=== PATIENT | female | born 1955 | race American Indian/Alaskan Native ===

== ENCOUNTER 2018-01-12 07:45 | Day surgery (SDC) | payer MEDICARE ==
[~2018-01-12 07:45] MED LIST: HEPARIN 10,000 UNITS/10 ML ONE; MARCAINE 0.5% 30 ML INFILTRATI ONE; NACL 0.9% 1000 ML 1,000 ML IV SCH; NACL 0.9% 500 ML 500 ML ONE; VANCOMYCIN/NS 1 GM/250 ML 1 GM/250 ML BAG IV NR; VERSED IV NR
[2018-01-12 09:35] LABS: Hematocrit 36.8 % (30.3-42.9); Hemoglobin 11.8 gm/dl (10.1-14.3); Mean Corpuscular HGB Conc 32 % (30-34); Mean Corpuscular Hemoglobin 29 pg (28-32); Mean Corpuscular Volume 91 fl (79-97); Platelet Count 195 K/mm3 (140-440); Red Blood Count 4.03 M/mm3 (3.65-5.03); Red Cell Distribution Width 13.4 % (13.2-15.2)
--- NOTE | 2018-01-12 09:47 | Anesthesia Day of Surgery ---
Anesthesia Day of Surgery - Day of Surgery Patient Examined: Yes Patient H&P Reviewed: Yes Patient is NPO: Yes Beta Blockers: Yes Cardiac Clearance: Yes Pulmonary Clearance: No
--- NOTE | 2018-01-12 09:49 | Anesthesia Consultation ---
Anesthesia Consult and Med Hx - Airway Anesthetic Teeth Evaluation: Edentulous ROM Head & Neck: Adequate Mental/Hyoid Distance: Adequate Mallampati Class: Class II Intubation Access Assessment: Probably Good - Pulmonary Exam CTA: Yes - Cardiac Exam Cardiac Exam: RRR - Pre-Operative Health Status ASA Pre-Surgery Classification: ASA4 Proposed Anesthetic Plan: General - Pulmonary Hx Smoking: Yes (one pack a day since age 13) COPD: Yes - Cardiovascular System Hx Hypertension: Yes - Central Nervous System Hx Psychiatric Problems: Yes - Endocrine Hx End Stage Renal Disease: Yes - Hematic Hx Anemia: Yes - Other Systems Hx Substance Use: Yes (Past cocaine user) Hx Cancer: Yes - Additional Comments Anesthesia Medical History Comments: ASA4: ESRD, HTN, ANEMIA, COPD, SMOKER
[2018-01-12 10:37] LABS: Calcium 8.5 mg/dL (8.4-10.2)
[2018-01-12 10:40] LABS: RBC Morphology Normal; Total Cells Counted 100
[2018-01-12 10:41] LABS: Platelet Estimate Consistent w Auto
[2018-01-12] MEDS ORDERED: DIPRIVAN 10 MG/ML IV ONE (11:35)
[2018-01-12] MEDS ORDERED: SUBLIMAZE ONE (11:35)
[2018-01-12] MEDS ORDERED: XYLOCAINE MPF 2% ONE (11:39)
[2018-01-12] MEDS ORDERED: ePHEDrine 50 MG/5 ML-0.9% NACL IV ONE (12:00)
[2018-01-12] MEDS ORDERED: ROBINUL ONE (12:09)
[2018-01-12] MEDS ORDERED: NEO SYNEPHRINE/NS Syringe(OR USE) IV ONE ×2 (12:16→14:00)
[2018-01-12] MEDS ORDERED: HEPARIN 10,000 UNITS/10 ML 2,000 UNIT in NACL 0.9% 500 ML 500 ML IR ONE (12:24)
[2018-01-12] MEDS ORDERED: MARCAINE 0.5% INFILTRATI ONE (13:32)
[2018-01-12] MEDS ORDERED: NACL 0.9% IR ONE (13:33)
[2018-01-12] MEDS ORDERED: ZOFRAN ONE (13:42)
--- NOTE | 2018-01-12 14:09 | Short Stay Summary ---
Short Stay Documentation Date of service: 01/12/18 Narrative H&P: See H&P - History H&P: obtained from office - Allergies and Medications Current Medications: Allergies Penicillins Allergy (Verified 01/08/18 17:15) Rash, hives Home Medications Medication Instructions Recorded Confirmed Last Taken Type Albuterol Sulfate [Ventolin Hfa] 2 puff IH PRN PRN 01/12/18 01/12/18 01/11/18 History Aspirin [Aspirin EC] 81 mg PO DAILY 01/12/18 01/12/18 01/12/18 07:00 History Cholecalciferol (Vitamin D3) 1,000 unit PO DAILY 01/12/18 01/12/18 01/11/18 History [Vitamin D3] Citalopram [celeXA] 20 mg PO QDAY 01/12/18 01/12/18 01/11/18 History Ferrous Sulfate [Iron] 325 mg PO BID 01/12/18 01/12/18 01/11/18 History Isosorb Dinit/Hydralazine [Bidil 1 each PO TID 01/12/18 01/12/18 01/11/18 History 20/37.5MG] Lactulose [Cephulac] 20 gm PO QDAY 01/12/18 01/12/18 01/11/18 History Sevelamer Carbonate [Renvela] 800 mg PO TID 01/12/18 01/12/18 01/11/18 History Sodium Polystyrene [Kionex] 30 gm PO ONCE 01/12/18 01/12/18 Unknown History Vit B Comp No.3/Folic/C/Biotin 1 each PO DAILY 01/12/18 01/12/18 01/11/18 History [Annie-Major Rx Tablet] risperiDONE [Risperdal] 4 mg PO DAILY 01/12/18 01/12/18 Unknown History Active Medications Sodium Chloride (Nacl 0.9% 1000 Ml) 1,000 mls @ 42 mls/hr IV DIRECT MARIA GUADALUPE Vancomycin HCl (Vancomycin/Ns 1 Gm/250 Ml) 1 gm in 250 mls @ 166.667 mls/hr IV PREOP NR; Protocol Stop: 01/12/18 23:59 Last Admin: 01/12/18 10:49 Dose: 166.667 mls/hr Sodium Chloride (Nacl 0.9% 1000 Ml) 1,000 mls @ 42 mls/hr IV DIRECT MARIA GUADALUPE Last Admin: 01/12/18 09:30 Dose: 42 mls/hr Midazolam HCl (Versed) 2 mg IV PREOP NR Stop: 01/12/18 23:59 - Brief post op/procedure progress note Date of procedure: 01/12/18 Pre-op diagnosis: End-Stage Renal Disease Post-op diagnosis: same Procedure: 1. Creation of Left Brachiocephalic Arteriovenous Fistula 2. Angioplasty of left cephalic vein with 4 x 200 balloon Anesthesia: GETA Surgeon: JEAN MUSTAFA Estimated blood loss: 50-100ml Pathology: none Condition: stable - Disposition Condition at discharge: Good Disposition: DC-01 TO HOME OR SELFCARE Short Stay Discharge Plan Activity: other (no heavy lifting with left arm) Wound: open to air, keep clean and dry, other (okay to wash the wound with soap and water but do not soak in water) Follow up with: JEAN MUSTAFA MD [Staff Physician] - 14 Days Prescriptions: HYDROcodone/APAP 7.5-325 [[place] 7.5/325] 1 each PO Q6HR PRN #40 tablet PRN Reason: Pain
--- NOTE | 2018-01-12 14:29 | Operative Report ---
Operative Report Operative Report: Date of procedure: 01/12/2018 Pre-operative diagnosis: End-Stage Renal Disease Post-operative diagnosis: End-Stage Renal Disease Procedure(s): 1. Creation of Left Brachial Artery to Cephalic Vein Arteriovenous Fistula 2. Angioplasty of Left Cephalic Vein with 4 x 200 Balloon Surgeon: Dwayne Shipley MD Miniature Set Builder: None Anesthesia: Gen. Endotracheal Anesthesia EBL: Minimal Counts: Correct Complications: None Condition: Stable Findings: Stenosis in the cephalic vein just after the takeoff of the anastomosis resulting in pulsatile flow of the fistula. After angioplasty with a 4 x 200 balloon there was a palpable thrill in the fistula. Specimen: None Indications: The patient is a 62-year-old female with history of end-stage renal disease on hemodialysis through a right internal to the permacath. She is in need of long- term dialysis access and was found to be a suitable candidate for creation of AV fistula. She was given the risks, benefits, and alternative procedures and consented to the procedure. Description of Procedure: The patient was brought to the operating room and laid in supine position after general endotracheal anesthesia was administered the patient was prepped and draped in normal sterile fashion. After anesthetizing the skin a transverse incision was created just below the antecubital crease. Dissection was carried down to the the cephalic vein using sharp dissection. The vein was dissected out both proximally and distally and suture ligated and divided distally. I then dissected out the brachial artery through this incision circumferentially both proximal and distal and controlled the artery with vessel loops. I then placed the vessel loops on tension controlling the flow through the artery and created an arteriotomy using an 11 blade and Red scissors. I created an end to side anastomosis between the cephalic vein and brachial artery using a combination of 6-0 Prolenes and Anastaclips . After completing the anastomosis I removed all clamps allow flow into the fistula which had a pulsatile character. I reclamped the fistula made a small rosibel in the lundberg of the fistula and attempted to pass a 3 Michelle however this only passed to approximately 5 cm. This indicated that there was either a stenosis or occlusion of the cephalic vein. I removed the Michelle and placed a micropuncture sheath into the fistula and was able to pass the 0.018 wire through the area of stenosis. I have asked to see through the area and then removed the inner cannula and wire and then advanced a 0.035 Bentson wire through the sheath and into the distal portion of the vein. The patient's arm was then and I could palpate the wire throughout the course of the vein. I advanced a 4 x 200 balloon into the vein and performed balloon angioplasty of the vein, by palpation. After angioplasty are multiple and wire and then used a 6-0 Prolene to close my venotomy. I then released the clamps allow flow into the fistula which had an excellent thrill. I achieved hemostasis with a combination of direct pressure and electrocautery. Once hemostasis was achieved I anesthetized the wound with 0.5% Marcaine. I then closed the wound in 2 layers and 3-0 Vicryl in a running fashion to close the deep dermal layer and 4-0 Monocryl in a running fashion in the subcuticular layer. I dressed the wound with Dermabond. The patient tolerated the procedure well, all sponge needle and instrument counts were correct. The patient was taken to recovery in stable condition.
[2018-01-12 20:49] VITALS: BP 112/77
== END 2018-01-12 16:25 | disposition home or self-care (01) ==
LOC: OR 07:45
PROVIDERS: ATTEND Surgery Vascular Surgery
DX: I12.0 Hypertensive chronic kidney disease with stage 5 chronic kidney disease or end stage renal disease (principal); N18.6 End stage renal disease; J44.9 Chronic obstructive pulmonary disease, unspecified; F17.210 Nicotine dependence, cigarettes, uncomplicated; Z88.0 Allergy status to penicillin; Z79.82 Long term (current) use of aspirin; Z79.899 Other long term (current) drug therapy
CPT/HCPCS: 36415; 36821; 37248; 80048; 85007; 85025; C1725; C1757; C1769; J1644; J2250; J2370; J2405; J2704; J3010; J3370; J7030; J7040

== ENCOUNTER 2018-02-16 11:43 | Outpatient (CLI) | payer MEDICARE ==
[2018-02-16 11:56] LABS: Basophils % (Auto) 0.7 % (0.0-1.8); Eosinophils # (Auto) 0.2 K/mm3 (0.0-0.4); Eosinophils % (Auto) 4.1 % (0.0-4.3); Hematocrit 30.5 % (30.3-42.9); Hemoglobin 10.3 gm/dl (10.1-14.3); Lymphocytes # (Auto) 2.7 K/mm3 (1.2-5.4); Lymphocytes % (Auto) 44.9 % (13.4-35.0); Mean Corpuscular HGB Conc 34 % (30-34); Mean Corpuscular Hemoglobin 30 pg (28-32); Mean Corpuscular Volume 89 fl (79-97); Monocytes # (Auto) 0.4 K/mm3 (0.0-0.8); Platelet Count 215 K/mm3 (140-440); Red Blood Count 3.43 M/mm3 (3.65-5.03); Red Cell Distribution Width 14.4 % (13.2-15.2)
[2018-02-16 12:24] LABS: Albumin 3.8 g/dL (3.9-5)
== END 2018-02-16 11:44 | disposition home or self-care (01) ==
LOC: LAB 11:43
PROVIDERS: ATTEND Internal Medicine Nephrology
DX: I13.0 Hypertensive heart and chronic kidney disease with heart failure and stage 1 through stage 4 chronic kidney disease, or unspecified chronic kidney disease (principal); I50.9 Heart failure, unspecified; N18.4 Chronic kidney disease, stage 4 (severe); J44.9 Chronic obstructive pulmonary disease, unspecified; F32.9 Major depressive disorder, single episode, unspecified; D64.9 Anemia, unspecified; F17.210 Nicotine dependence, cigarettes, uncomplicated; Z90.710 Acquired absence of both cervix and uterus
CPT/HCPCS: 36415; 80048; 82040; 84100; 85025

== ENCOUNTER 2018-04-19 21:43 | Emergency (ER) | payer MEDICARE ==
[2018-04-19 22:00] VITALS: BP 113/65
[2018-04-20 00:05] LABS: Basophils % (Auto) 0.7 % (0.0-1.8); Eosinophils # (Auto) 0.4 K/mm3 (0.0-0.4); Eosinophils % (Auto) 6.4 % (0.0-4.3); Hematocrit 28.7 % (30.3-42.9); Hemoglobin 9.4 gm/dl (10.1-14.3); Lymphocytes # (Auto) 2.6 K/mm3 (1.2-5.4); Lymphocytes % (Auto) 41.7 % (13.4-35.0); Mean Corpuscular HGB Conc 33 % (30-34); Mean Corpuscular Hemoglobin 29 pg (28-32); Mean Corpuscular Volume 90 fl (79-97); Monocytes # (Auto) 0.4 K/mm3 (0.0-0.8); Monocytes % (Auto) 6.1 % (0.0-7.3); Platelet Count 229 K/mm3 (140-440); Red Cell Distribution Width 16.4 % (13.2-15.2)
[2018-04-20 00:18] LABS: Calcium 8.4 mg/dL (8.4-10.2)
--- NOTE | 2018-04-20 00:51 | Emergency Department Report ---
ED General Adult HPI - General Chief complaint: Tube Replacement Stated complaint: KIDNEY TUBE DRAINING Time Seen by Provider: 04/19/18 23:05 Source: patient Mode of arrival: Ambulatory Limitations: No Limitations - History of Present Illness Initial comments: 62-year-old female past medical history CHF, COPD, hypertension, renal insufficiency, and ovarian cancer presents to the hospital with complaints of left nephrostomy to coming out this evening. Patient states that she was initially placed in January at [facility]. She states she has been treated in the past with chemotherapy for her ovarian cancer and states that she still has residual tumors. She's had previous abdominal surgery secondary to her ovarian cancer. Patient states she still having urine output. No pain, nausea, vomiting, or fever reported. In general patient had an AV fistula placed here preparation for future dialysis - Related Data Home Medications Medication Instructions Recorded Confirmed Last Taken Albuterol Sulfate [Ventolin Hfa] 2 puff IH PRN PRN 01/12/18 01/12/18 01/11/18 Aspirin [Aspirin EC] 81 mg PO DAILY 01/12/18 01/12/18 01/12/18 07:00 Cholecalciferol (Vitamin D3) 1,000 unit PO DAILY 01/12/18 01/12/18 01/11/18 [Vitamin D3] Citalopram [Celexa] 20 mg PO QDAY 01/12/18 01/12/18 01/11/18 Ferrous Sulfate [Iron] 325 mg PO BID 01/12/18 01/12/18 01/11/18 Isosorb Dinit/Hydralazine [Bidil 1 each PO TID 01/12/18 01/12/18 01/11/18 20/37.5MG] Lactulose [Cephulac] 20 gm PO QDAY 01/12/18 01/12/18 01/11/18 Sevelamer Carbonate [Renvela] 800 mg PO TID 01/12/18 01/12/18 01/11/18 Sodium Polystyrene [Kionex] 30 gm PO ONCE 01/12/18 01/12/18 Unknown Vit B Comp No.3/Folic/C/Biotin 1 each PO DAILY 01/12/18 01/12/18 01/11/18 [Annie-Major Rx Tablet] risperiDONE [Risperdal] 4 mg PO DAILY 01/12/18 01/12/18 Unknown Previous Rx's Medication Instructions Recorded Last Taken Type HYDROcodone/APAP 7.5-325 [[place] 1 each PO Q6HR PRN #40 tablet 01/12/18 Unknown Rx 7.5/325] Allergies Allergy/AdvReac Type Severity Reaction Status Date / Time Penicillins Allergy Rash, hives Verified 01/08/18 17:15 ED Review of Systems ROS: Stated complaint: KIDNEY TUBE DRAINING Other details as noted in HPI Comment: All other systems reviewed and negative ED Past Medical Hx - Past Medical History Hx Hypertension: Yes Hx Congestive Heart Failure: Yes Hx Renal Disease: Yes (renal insufficiency) Hx of Cancer: Yes (ovarian) Hx COPD: Yes - Surgical History Additional Surgical History: Left arm AV fistula placed January 2018. Left nephrostomy tube - Social History Smoking Status: Never Smoker Substance Use Type: None - Medications Home Medications: Home Medications Medication Instructions Recorded Confirmed Last Taken Type Albuterol Sulfate [Ventolin Hfa] 2 puff IH PRN PRN 01/12/18 01/12/18 01/11/18 History Aspirin [Aspirin EC] 81 mg PO DAILY 01/12/18 01/12/18 01/12/18 07:00 History Cholecalciferol (Vitamin D3) 1,000 unit PO DAILY 01/12/18 01/12/18 01/11/18 History [Vitamin D3] Citalopram [Celexa] 20 mg PO QDAY 01/12/18 01/12/18 01/11/18 History Ferrous Sulfate [Iron] 325 mg PO BID 01/12/18 01/12/18 01/11/18 History HYDROcodone/APAP 7.5-325 [[place] 1 each PO Q6HR PRN #40 tablet 01/12/18 Unknown Rx 7.5/325] Isosorb Dinit/Hydralazine [Bidil 1 each PO TID 01/12/18 01/12/18 01/11/18 History 20/37.5MG] Lactulose [Cephulac] 20 gm PO QDAY 01/12/18 01/12/18 01/11/18 History Sevelamer Carbonate [Renvela] 800 mg PO TID 01/12/18 01/12/18 01/11/18 History Sodium Polystyrene [Kionex] 30 gm PO ONCE 01/12/18 01/12/18 Unknown History Vit B Comp No.3/Folic/C/Biotin 1 each PO DAILY 01/12/18 01/12/18 01/11/18 History [Annie-Major Rx Tablet] risperiDONE [Risperdal] 4 mg PO DAILY 01/12/18 01/12/18 Unknown History ED Physical Exam - General Limitations: No Limitations - Other Other exam information: General: No limitations, patient is alert in no acute distress Head exam: Atraumatic, normocephalic Eyes exam: Normal appearance ENT: Moist mucous membrane, normal oropharynx Neck exam: Normal inspection, full range of motion Respiratory exam: Clear to auscultation bilateral, no wheezes, rales, crackles Cardiovascular: Normal rate and rhythm, normal heart sounds Abdomen: Soft, nondistended, and nontender, with normal bowel sounds, no rebound, or guarding. Vertical surgical mid abdominal scar noted Extremity: Full range of motion normal inspection no deformity Back: Normal Inspection, full range of motion, left nephrostomy stoma site without, tenderness, erythema or swelling Neurologic: Alert, oriented x3, cranial nerves intact, no motor or sensory deficit Psychiatric: normal affect, normal mood Skin: Warm, dry, intact ED Course Vital Signs 04/19/18 21:56 Temperature 98.8 F Pulse Rate 76 Respiratory 16 Rate Blood Pressure 113/65 O2 Sat by Pulse 96 Oximetry - Consultations Consultation #1: 04/20/18 01:58 [facility] was called in an attempt to transfer patient to the hospital for nephrostomy tube placement since she is their patient. Ms. Kerr with this transfer line discussed case after chart review with interventional radiologist Dr. Escamilla. Dr. Escamilla states this is not an emergent issue and patient can go to the urology clinic at [facility] in the a.m. If necessary they will refer patient to IR for nephrostomy tube tomorrow. Patient has an appointment scheduled for April 22 to have her nephrostomy tube changed. She is suppose to have it changed every 3 months. ED Medical Decision Making - Lab Data Result diagrams: 04/19/18 23:48 04/19/18 23:48 Lab Results 04/19/18 04/19/18 Range/Units 23:48 23:48 WBC 6.2 (4.5-11.0) K/mm3 RBC 3.20 L (3.65-5.03) M/mm3 Hgb 9.4 L (10.1-14.3) gm/dl Hct 28.7 L (30.3-42.9) % MCV 90 (79-97) fl MCH 29 (28-32) pg MCHC 33 (30-34) % RDW 16.4 H (13.2-15.2) % Plt Count 229 (140-440) K/mm3 Lymph % (Auto) 41.7 H (13.4-35.0) % [place] % (Auto) 6.1 (0.0-7.3) % Eos % (Auto) 6.4 H (0.0-4.3) % Baso % (Auto) 0.7 (0.0-1.8) % Lymph # 2.6 (1.2-5.4) K/mm3 [place] # 0.4 (0.0-0.8) K/mm3 Eos # 0.4 (0.0-0.4) K/mm3 Baso # 0.0 (0.0-0.1) K/mm3 Seg Neutrophils % 45.1 (40.0-70.0) % Seg Neutrophils # 2.8 (1.8-7.7) K/mm3 Sodium 138 (137-145) mmol/L Potassium 5.0 (3.6-5.0) mmol/L Chloride 103.8 (98-107) mmol/L Carbon Dioxide 23 (22-30) mmol/L Anion Gap 16 mmol/L BUN 32 H (7-17) mg/dL Creatinine 3.1 H (0.7-1.2) mg/dL Estimated GFR 18 ml/min BUN/Creatinine Ratio 10 % Glucose 87 (65-100) mg/dL Calcium 8.4 (8.4-10.2) mg/dL - Radiology Data Radiology results: report reviewed FINAL REPORT EXAM: CT ABDOMEN PELVIS WO CON HISTORY: L nephrostomy tube out, hx of ovarian ca TECHNIQUE: Routine axial imaging was obtained of the abdomen and pelvis without oral or IV contrast. Sagittal and coronal reconstructions were reviewed. There are no previous studies available for comparison. FINDINGS: The lung bases do not show infiltrates or effusions. There is mild scarring in both lower lobes. There is a small hiatal hernia. Heart is mildly enlarged. The liver, gallbladder, biliary tree, pancreas, spleen, and adrenal glands appear normal. There is severe chronic left-sided hydronephrosis. There are small foci of air within the left renal collecting structures. The right kidney reveals 14.5 mm cortical cyst along the lower pole. There is no evidence of right-sided hydronephrosis. There calcification of the abdominal aorta. The bowel loops are normal in caliber and course. There is no evidence of free fluid. There are surgical clips in both sides of the pelvis. In the left side of the pelvis there is a homogeneous 7 cm x 6.2 cm x 5.6 cm mass. The uterus is not seen. Free fluid is not seen. The bladder appears normal. The skeletal structures reveal multilevel disc degeneration in the lumbar spine IMPRESSION: Severe chronic left-sided hydronephrosis with small foci of air in the left collecting structures. Cortical cyst lower pole the right kidney. No evidence of right-sided hydronephrosis. Left midline pelvic mass measuring 7 cm x 6.2 cm x 5.6 cm. Surgical clips in both side of the pelvis noted. Arthritic changes in the lumbar spine. - Medical Decision Making Patient presenting with nephrostomy tube dislodgment. CT shows chronic left- sided hydronephrosis like he secondary to pelvic mass. Case was discussed with [facility] for transfer. Intubation radiologist Dr. Escamilla states this is not an emergent indication for transfer and patient may follow up in the urology clinic tomorrow. Patient will be discharged. Kidney function is unchanged. - Differential Diagnosis kidney failure, obstruction, cancer, nephrostomy tube dislodgment Critical Care Time: No Critical care attestation.: If time is entered above; I have spent that time in minutes in the direct care of this critically ill patient, excluding procedure time. ED Disposition Clinical Impression: Nephrostomy tube displaced, Chronic renal insufficiency, Ovarian cancer, Pelvic mass, Hydronephrosis, left Disposition: DC-01 TO HOME OR SELFCARE Is pt being admited?: No Does the pt Need Aspirin: No Condition: Stable Instructions: Hydronephrosis (ED), Ovarian Cancer (ED), Impaired Kidney Function (ED) Additional Instructions: Go to your urology doctors office in a.m. to discuss the placement of urine nephrostomy tube. Referrals: Kely oviedo [Other] - 04/20/18 ([facility] urologist) Time of Disposition: 02:05
== END 2018-04-20 02:25 | disposition home or self-care (01) ==
LOC: ED 21:43
DX: T83.022A Displacement of nephrostomy catheter, initial encounter (principal); I11.0 Hypertensive heart disease with heart failure; J44.9 Chronic obstructive pulmonary disease, unspecified; Z79.82 Long term (current) use of aspirin; Z88.0 Allergy status to penicillin
CPT/HCPCS: 36415; 74176; 80048; 85025; 99284

== ENCOUNTER 2019-05-17 10:18 | Outpatient (CLI) | payer MEDICARE ==
[2019-05-17 10:39] LABS: Basophils # (Auto) 0.1 K/mm3 (0.0-0.1); Basophils % (Auto) 1.3 % (0.0-1.8); Eosinophils # (Auto) 0.3 K/mm3 (0.0-0.4); Eosinophils % (Auto) 5.4 % (0.0-4.3); Hematocrit 32.4 % (30.3-42.9); Hemoglobin 10.5 gm/dl (10.1-14.3); Lymphocytes # (Auto) 2.2 K/mm3 (1.2-5.4); Lymphocytes % (Auto) 43.2 % (13.4-35.0); Mean Corpuscular HGB Conc 33 % (30-34); Mean Corpuscular Volume 90 fl (79-97); Monocytes # (Auto) 0.4 K/mm3 (0.0-0.8); Monocytes % (Auto) 7.2 % (0.0-7.3); Platelet Count 203 K/mm3 (140-440); Red Blood Count 3.62 M/mm3 (3.65-5.03); Red Cell Distribution Width 15.2 % (13.2-15.2)
[2019-05-17 10:54] LABS: Albumin 3.9 g/dL (3.9-5); Calcium 8.2 mg/dL (8.4-10.2)
== END 2019-05-17 10:19 | disposition home or self-care (01) ==
LOC: LAB 10:18
PROVIDERS: ATTEND Internal Medicine Nephrology
DX: I13.0 Hypertensive heart and chronic kidney disease with heart failure and stage 1 through stage 4 chronic kidney disease, or unspecified chronic kidney disease (principal); N18.4 Chronic kidney disease, stage 4 (severe); I50.9 Heart failure, unspecified
CPT/HCPCS: 36415; 80048; 82040; 84100; 85025

== ENCOUNTER 2019-09-27 10:29 | Outpatient (CLI) | payer MEDICARE ==
[2019-09-27 11:16] LABS: Albumin 3.6 g/dL (3.9-5); Calcium 7.9 mg/dL (8.4-10.2)
== END 2019-09-27 10:30 | disposition home or self-care (01) ==
LOC: LAB 10:29
PROVIDERS: ATTEND Internal Medicine Nephrology
DX: N18.4 Chronic kidney disease, stage 4 (severe) (principal)
CPT/HCPCS: 36415; 80048; 82040; 84100

== ENCOUNTER 2019-11-29 11:09 | Outpatient (CLI) | payer MEDICARE ==
[2019-11-29 12:10] LABS: Albumin 3.8 g/dL (3.9-5); Calcium 9.1 mg/dL (8.4-10.2)
== END 2019-11-29 11:10 | disposition home or self-care (01) ==
LOC: LAB 11:09
PROVIDERS: ATTEND Internal Medicine Nephrology
DX: N18.4 Chronic kidney disease, stage 4 (severe) (principal)
CPT/HCPCS: 36415; 80048; 82040; 84100

== ENCOUNTER 2020-02-29 13:10 | Outpatient (CLI) | payer MEDICARE ==
[2020-02-29 14:14] LABS: Albumin 3.8 g/dL (3.9-5); Calcium 8.7 mg/dL (8.4-10.2)
== END 2020-02-29 13:11 | disposition home or self-care (01) ==
LOC: LAB 13:10
PROVIDERS: ATTEND Internal Medicine Nephrology
DX: N18.4 Chronic kidney disease, stage 4 (severe) (principal)
CPT/HCPCS: 36415; 80048; 82040; 84100